=== PATIENT | female | born 1955 | race Caucasian/White ===

== ENCOUNTER 2022-08-25 19:40 | Inpatient (IN) | payer OTHER, MEDICARE ==
[~2022-08-25 19:40] MED LIST: Iopamidol-370 76% 500 ML 1 ML ONE
[2022-08-25] MEDS ORDERED: Fentanyl 100 MCG/2 ML VIAL ONE (19:55)
[2022-08-25 20:13] LABS: #Basophils 0.1 thou/uL (0.0-0.2); #Eosinphils 0.1 thou/uL (0.0-0.7); #Lymphocytes 2.1 thou/uL (1.20-3.40); #Monocytes 0.5 thou/uL (0.11-0.59); #Neutrophils 10.1 thou/uL (1.40-6.50); %Basophils 0.4 % (0.0-1.0); %Eosinophils 0.5 % (0.0-10.0); %Lymphocytes 16.1 % (21.0-51.0); Hemoglobin 11.9 g/dL (12.0-16.0); Mean Corpuscular HGB CONC 34.4 g/dL (32.0-36.0); Mean Corpuscular Hemoglobin 31.8 pg (27.0-31.0); Mean Corpuscular Volume 92.4 fl (78.0-98.0); Mean Platelet Volume 7.5 fL (7.4-10.4); Platelet Count 261 10x3/uL (130-400); RBC Distribution Width 11.4 % (11.5-14.5); Red Blood Cell (RBC) Count 3.75 mill/uL (4.20-5.40); White Blood Cell (WBC) Count 12.7 10x3/uL (4.8-10.8)
[2022-08-25 20:39] LABS: ALT (SGPT) 20 U/L (8-55); AST (SGOT) 31 U/L (5-34); Albumin 3.6 g/dL (3.4-4.8); Alcohol Less than 10 mg/dL (Less than 10); Alkaline Phosphatase 66 U/L (40-110); Anion Gap 12 mmol/L (10-20); BUN (Urea Nitrogen) 13 mg/dL (9.8-20.1); Bilirubin, Total 0.6 mg/dL (0.2-1.2); Calc. Creatinine Clearance 0 mL/min (70-130); Calcium 8.5 mg/dL (7.8-10.44); Carbon Dioxide 20 mmol/L (23-31); Chloride 108 mmol/L (98-107); Estimated GFR 84; Globulin 2.5 g/dL (2.4-3.5); Glucose 106 mg/dL (80-115); Lipase 23 U/L (8-78); Protein, Total 6.1 g/dL (5.8-8.1); Sodium 137 mmol/L (136-145)
[2022-08-25 20:46] LABS: Potassium 2.6 mmol/L (3.5-5.1)
[2022-08-25] MEDS ORDERED: Potassium Chloride 20 MEQ TAB ONE (20:58)
[2022-08-25] MEDS ORDERED: Acetaminophen 500 MG TAB ONE (20:58)
[2022-08-25] MEDS ORDERED: Potassium Chloride 40 MEQ in Sodium Chloride 0.9% 250 ML 250 ML IVPB SCH (21:00)
[2022-08-25 21:02] LABS: INR-International Normal Ratio 1.2; Prothrombin Time 15.4 sec (12.0-14.7)
[2022-08-25] MEDS ORDERED: Boostrix 0.5 ML (Tdap) VIAL (>/=7 yrs of age) ONE ×2 (22:04→22:11)
[2022-08-25] MEDS ORDERED: Ipratropium/Albuterol 3 ML NEB NEB PRN (22:34)
[2022-08-25] MEDS ORDERED: Potassium Chloride 20 MEQ in Lactated Ringer's 1,000 ML IV SCH (22:45)
[2022-08-25] MEDS ORDERED: Sodium Chloride 0.9% 1,000 ML IV SCH (22:45)
[2022-08-25] MEDS ORDERED: Potassium Chloride 20 MEQ TAB PO SCH (22:45)
[2022-08-25] MEDS ORDERED: Melatonin 3 MG TAB PO PRN (22:52)
[2022-08-25] MEDS ORDERED: Lactated Ringer's 1,000 ML IV SCH (23:00)
[2022-08-26 00:38] VITALS: BMI 23.3
[2022-08-26] MEDS: Acetaminophen 325 MG TAB PO SCH ×4 (00:45→17:30)
[2022-08-26] MEDS: Acetaminophen/Codeine 30-300mg Tablet PO SCH ×4 (00:46→17:31)
[2022-08-26 00:49] LABS: Lactic Acid 1.8 mmol/L (0.5-2.2)
[2022-08-26 01:11] LABS: SARS-CoV-2 NAA Rapid Test Not Detected (NotDetected)
[2022-08-26 02:29] LABS: Amphetamine Detected (NotDetected); Barbiturates Screen Not Detected (NotDetected); Benzodiazepine Screen Not Detected (NotDetected); Cocaine Metabolite Screen Not Detected (NotDetected); Methadone Not Detected (NotDetected); Methamphetamine Detected (NotDetected); Opiate Screen Detected (NotDetected); Oxycodone Screen Not Detected (NotDetected); Phencyclidine (PCP) Not Detected (NotDetected); THC/Cannabinoid Screen Not Detected (NotDetected); Tricyclic Screen Not Detected (NotDetected)
[2022-08-26 05:45] LABS: INR-International Normal Ratio 1.2; PTT 32.6 sec (22.9-36.1); Prothrombin Time 15.1 sec (12.0-14.7)
[2022-08-26 05:51] LABS: Lactic Acid 1.9 mmol/L (0.5-2.2)
[2022-08-26 05:59] LABS: #Lymphocytes 0.9 thou/uL (1.20-3.40); #Monocytes 0.7 thou/uL (0.11-0.59); #Neutrophils 5.6 thou/uL (1.40-6.50); %Basophils 0.6 % (0.0-1.0); %Eosinophils 0.4 % (0.0-10.0); Hemoglobin 11.1 g/dL (12.0-16.0); Mean Corpuscular HGB CONC 34.5 g/dL (32.0-36.0); Mean Corpuscular Hemoglobin 32.5 pg (27.0-31.0); Mean Corpuscular Volume 94.2 fl (78.0-98.0); Mean Platelet Volume 8.9 fL (7.4-10.4); Platelet Count 125 10x3/uL (130-400); RBC Distribution Width 11.5 % (11.5-14.5); Red Blood Cell (RBC) Count 3.42 mill/uL (4.20-5.40); White Blood Cell (WBC) Count 7.2 10x3/uL (4.8-10.8)
[2022-08-26 06:07] LABS: Anion Gap 10 mmol/L (10-20); BUN (Urea Nitrogen) 11 mg/dL (9.8-20.1); Calc. Creatinine Clearance 70 mL/min (70-130); Calcium 8.3 mg/dL (7.8-10.44); Carbon Dioxide 21 mmol/L (23-31); Chloride 111 mmol/L (98-107); Estimated GFR 92; Glucose 115 mg/dL (80-115); Sodium 137 mmol/L (136-145)
[2022-08-26] MEDS: Ondansetron PF 4 MG/2 ML Vial IVP PRN ×2 (07:40→14:48)
[2022-08-26] MEDS: Ferrous Sulfate 325 MG TAB PO SCH ×2 (07:42→17:30)
[2022-08-26] MEDS: Ascorbic Acid 500 mg Chewable Tablet PO SCH ×2 (07:42→22:19)
[2022-08-26] MEDS: Famotidine 20 MG TAB PO SCH ×2 (07:42→22:19)
[2022-08-26] MEDS: diphenhydrAMINE 50 MG CAP PO PRN (22:19)
[2022-08-27] MEDS: Acetaminophen 325 MG TAB PO SCH ×3 (00:15→11:22)
[2022-08-27] MEDS: Acetaminophen/Codeine 30-300mg Tablet PO SCH ×4 (00:15→18:25)
[2022-08-27] MEDS: Ferrous Sulfate 325 MG TAB PO SCH ×2 (09:46→18:26)
[2022-08-27] MEDS: Ascorbic Acid 500 mg Chewable Tablet PO SCH ×2 (09:46→22:29)
[2022-08-27] MEDS: Famotidine 20 MG TAB PO SCH ×2 (09:46→22:29)
[2022-08-27] MEDS ORDERED: Ketorolac Tromethamine 30 MG/ML VIAL IVP PRN (14:13)
[2022-08-27] MEDS: Gabapentin 100 MG CAP PO SCH ×2 (16:28→22:31)
[2022-08-27] MEDS: Ketorolac Tromethamine 30 MG/ML VIAL IVP SCH (18:26)
[2022-08-27] MEDS: diphenhydrAMINE 50 MG CAP PO PRN (22:29)
[2022-08-28] MEDS: Acetaminophen/Codeine 30-300mg Tablet PO SCH ×4 (00:30→13:36)
[2022-08-28] MEDS: Ketorolac Tromethamine 30 MG/ML VIAL IVP SCH ×3 (00:31→13:16)
[2022-08-28] MEDS: Ascorbic Acid 500 mg Chewable Tablet PO SCH ×2 (10:14→20:38)
[2022-08-28] MEDS: Gabapentin 100 MG CAP PO SCH ×3 (10:14→20:39)
[2022-08-28] MEDS: Ferrous Sulfate 325 MG TAB PO SCH ×2 (10:14→19:06)
[2022-08-28] MEDS: Famotidine 20 MG TAB PO SCH ×2 (10:14→20:38)
[2022-08-28] MEDS: Ibuprofen 200 MG TAB PO PRN (16:27)
[2022-08-28] MEDS: Acetaminophen 500 MG TAB PO SCH (19:05)
[2022-08-28] MEDS: Senokot S 8.6-50 MG TAB PO SCH (20:38)
[2022-08-28] MEDS: diphenhydrAMINE 50 MG CAP PO SCH (20:38)
[2022-08-29] MEDS: Acetaminophen 500 MG TAB PO SCH ×5 (00:18→23:05)
[2022-08-29] MEDS ORDERED: traMADol HCl 50 MG TAB PO PRN ×2 (08:32)
[2022-08-29] MEDS: Ascorbic Acid 500 mg Chewable Tablet PO SCH (08:58)
[2022-08-29] MEDS: Ferrous Sulfate 325 MG TAB PO SCH ×2 (08:58→09:00)
[2022-08-29] MEDS: Famotidine 20 MG TAB PO SCH ×2 (08:58→19:44)
[2022-08-29] MEDS: Gabapentin 100 MG CAP PO SCH ×3 (08:59→19:44)
[2022-08-29] MEDS: Senokot S 8.6-50 MG TAB PO SCH ×2 (09:00→19:47)
[2022-08-29] MEDS: Polyethylene Glycol 3350 17 GM Packet PO SCH (09:00)
[2022-08-29] MEDS: traMADol HCl 50 MG TAB PO PRN (09:16)
[2022-08-29] MEDS: Scopolamine 1.5 mg/72 hour Patch TD SCH (09:16)
[2022-08-29] MEDS: traMADol HCl 50 MG TAB PO SCH ×3 (12:46→23:05)
[2022-08-29] MEDS: Ibuprofen 200 MG TAB PO PRN (16:01)
[2022-08-29] MEDS: diphenhydrAMINE 50 MG CAP PO SCH (19:44)
[2022-08-30] MEDS: Ibuprofen 200 MG TAB PO PRN ×3 (01:12→21:36)
[2022-08-30] MEDS: traMADol HCl 50 MG TAB PO PRN ×2 (01:12→21:35)
[2022-08-30] MEDS: Acetaminophen 500 MG TAB PO SCH ×4 (05:31→23:37)
[2022-08-30] MEDS: traMADol HCl 50 MG TAB PO SCH ×4 (05:31→23:36)
[2022-08-30] MEDS: Ondansetron PF 4 MG/2 ML Vial IVP PRN (08:44)
[2022-08-30] MEDS: Ferrous Sulfate 325 MG TAB PO SCH (10:04)
[2022-08-30] MEDS: Gabapentin 100 MG CAP PO SCH ×3 (10:04→19:23)
[2022-08-30] MEDS: Ascorbic Acid 500 mg Chewable Tablet PO SCH (10:04)
[2022-08-30] MEDS: Famotidine 20 MG TAB PO SCH ×2 (10:04→19:23)
[2022-08-30] MEDS: Polyethylene Glycol 3350 17 GM Packet PO SCH (10:05)
[2022-08-30] MEDS: Senokot S 8.6-50 MG TAB PO SCH ×2 (10:05→19:23)
[2022-08-30] MEDS: diphenhydrAMINE 50 MG CAP PO SCH (19:23)
[2022-08-31] MEDS: Acetaminophen 500 MG TAB PO SCH (05:45)
[2022-08-31] MEDS: traMADol HCl 50 MG TAB PO SCH ×3 (05:45→21:47)
[2022-08-31] MEDS ORDERED: traMADol HCl 50 MG TAB PO SCH (08:39)
[2022-08-31] MEDS ORDERED: Acetaminophen/Codeine 30-300mg Tablet PO PRN (08:40)
[2022-08-31] MEDS ORDERED: Acetaminophen 325 MG TAB PO SCH ×2 (08:40→18:00)
[2022-08-31] MEDS: Ascorbic Acid 500 mg Chewable Tablet PO SCH (08:59)
[2022-08-31] MEDS: Famotidine 20 MG TAB PO SCH ×2 (09:00→20:34)
[2022-08-31] MEDS: Gabapentin 100 MG CAP PO SCH ×3 (09:00→20:35)
[2022-08-31] MEDS: Ferrous Sulfate 325 MG TAB PO SCH (09:00)
[2022-08-31] MEDS: Polyethylene Glycol 3350 17 GM Packet PO SCH (09:01)
[2022-08-31] MEDS: Senokot S 8.6-50 MG TAB PO SCH ×2 (09:01→20:36)
[2022-08-31] MEDS ORDERED: traMADol HCl 50 MG TAB PO PRN (14:06)
[2022-08-31] MEDS: Acetaminophen 325 MG TAB PO SCH (17:46)
[2022-08-31] MEDS ORDERED: Acetaminophen/Codeine 30-300mg Tablet PO SCH (18:00)
[2022-08-31] MEDS: diphenhydrAMINE 50 MG CAP PO SCH (20:34)
[2022-09-01] MEDS: Acetaminophen 325 MG TAB PO SCH (00:51)
[2022-09-01] MEDS ORDERED: Acetaminophen 500 MG TAB PO SCH (01:30)
[2022-09-01] MEDS: traMADol HCl 50 MG TAB PO SCH ×4 (03:47→23:06)
[2022-09-01] MEDS: Acetaminophen 500 MG TAB PO SCH ×4 (05:05→23:06)
[2022-09-01] MEDS: Ascorbic Acid 500 mg Chewable Tablet PO SCH (08:41)
[2022-09-01] MEDS: Famotidine 20 MG TAB PO SCH ×2 (08:41→20:46)
[2022-09-01] MEDS: Gabapentin 100 MG CAP PO SCH ×3 (08:41→20:45)
[2022-09-01] MEDS: Polyethylene Glycol 3350 17 GM Packet PO SCH (08:42)
[2022-09-01] MEDS: Ferrous Sulfate 325 MG TAB PO SCH (08:42)
[2022-09-01] MEDS: Senokot S 8.6-50 MG TAB PO SCH ×2 (08:43→20:46)
[2022-09-01] MEDS: Scopolamine 1.5 mg/72 hour Patch TD SCH (08:49)
[2022-09-01] MEDS: diphenhydrAMINE 50 MG CAP PO SCH (20:46)
[2022-09-02] MEDS: Ibuprofen 200 MG TAB PO PRN (04:18)
[2022-09-02] MEDS: Acetaminophen 500 MG TAB PO SCH ×2 (05:33→12:16)
[2022-09-02] MEDS: traMADol HCl 50 MG TAB PO SCH ×3 (05:33→15:59)
[2022-09-02] MEDS ORDERED: Gabapentin 300 MG CAP PO SCH ×2 (10:15→15:00)
[2022-09-02 10:19] LABS: #Eosinphils 0.1 thou/uL (0.0-0.7); #Lymphocytes 1.3 thou/uL (1.20-3.40); #Monocytes 0.7 thou/uL (0.11-0.59); #Neutrophils 4.6 thou/uL (1.40-6.50); %Basophils 0.3 % (0.0-1.0); %Eosinophils 2.2 % (0.0-10.0); %Lymphocytes 19.1 % (21.0-51.0); %Monocytes 9.8 % (0.0-10.0); %Neutrophils 68.6 % (42.0-75.0); Hemoglobin 10.7 g/dL (12.0-16.0); Mean Corpuscular HGB CONC 33.7 g/dL (32.0-36.0); Mean Corpuscular Hemoglobin 33.7 pg (27.0-31.0); Platelet Count 280 10x3/uL (130-400); RBC Distribution Width 12.6 % (11.5-14.5); Red Blood Cell (RBC) Count 3.16 mill/uL (4.20-5.40); White Blood Cell (WBC) Count 6.7 10x3/uL (4.8-10.8)
[2022-09-02] MEDS: Ascorbic Acid 500 mg Chewable Tablet PO SCH (10:19)
[2022-09-02] MEDS: Famotidine 20 MG TAB PO SCH (10:19)
[2022-09-02] MEDS: Senokot S 8.6-50 MG TAB PO SCH (10:19)
[2022-09-02] MEDS: Polyethylene Glycol 3350 17 GM Packet PO SCH (10:19)
[2022-09-02] MEDS: Ferrous Sulfate 325 MG TAB PO SCH (10:20)
[2022-09-02] MEDS: Gabapentin 100 MG CAP PO SCH (10:23)
[2022-09-02 12:56] VITALS: BP 126/67; TEMP 97.7
== END 2022-09-02 17:21 | disposition swing bed (61) | DRG 552 ==
LOC: ERS 19:40 → SURG B 22:34 → OBSVTOIN 08-28 10:30
PROVIDERS: ADMIT Surgery; ATTEND Surgery
DX: S32.10XA Unspecified fracture of sacrum, initial encounter for closed fracture (principal); Z20.822 Contact with and (suspected) exposure to COVID-19; R58 Hemorrhage, not elsewhere classified; J45.909 Unspecified asthma, uncomplicated; G25.81 Restless legs syndrome; F43.10 Post-traumatic stress disorder, unspecified; Z88.5 Allergy status to narcotic agent; V03.10XA Pedestrian on foot injured in collision with car, pick-up truck or van in traffic accident, initial encounter; Z98.51 Tubal ligation status; E04.1 Nontoxic single thyroid nodule; E87.6 Hypokalemia
CPT/HCPCS: 36415; 70450; 71045; 71260; 72125; 72170; 74177; 80048; 80053; 80306; 80307; 83605; 83690; 83735; 85025; 85610; 85730; 87811; 90471; 90715; 93005; 94760; 96365; 96366; 96372; 96375; 96376; G0378; G0390; J1650; J1885; J2405; J3010; J3480; J7050; J7120; Q9967; U0002